=== PATIENT | female | born 1955 | race Caucasian/White ===

== ENCOUNTER 2020-11-30 11:03 | Emergency (ER) | payer OTHER ==
[~2020-11-30] VITALS: Ht 172.7 cm; Wt 93.2 kg
--- NOTE | 2020-11-30 12:48 | REP ---
INDICATION: r leg swelling, redness, tenderness. COMPARISON: None. TECHNIQUE: Right {lower extremity duplex venous scanning is performed from the groin to the ankle level. FINDINGS: The deep veins are anechoic and fully compressible from the groin to the popliteal fossa in the right lower extremity. Color flow imaging is homogeneous. Spectral Doppler interrogation demonstrates intact respiratory variation in flow and normal manual augmentation of flow. There is no evidence of deep vein thrombosis above the knee. There is occlusive thrombosis in the greater saphenous vein extending from the distal thigh across the popliteal region into the proximal calf. Superficial vein thrombophlebitis is present. There is no evidence of DVT in the visualized deep system calf veins. Doppler interrogation of the contralateral common femoral vein shows normal symmetric respiratory phasicity. IMPRESSION: No evidence of DVT in the right lower extremity femoropopliteal veins. No DVT in the visible portions of the calf veins. Superficial DVT is present with occlusive thrombosis of the distal greater saphenous vein on the right side. <Electronically signed by Jerry Loja > 11/30/20 [id number]
--- NOTE | 2020-11-30 13:08 | CR.PDOC ---
General Date of Consultation: Nov 30, 2020 Referring Provider: JENNIFER YOO PA-C Consultation REASON FOR CONSULTATION/CHIEF COMPLAINT: Right Superficial Great Saphenous Vein Thrombophlebitis ED PA-C called to confirm treatment plan for this 65 y/o female who developed redness and pain at lower right leg for past 2. Patient had an ultrasound performed which showed right gsv thrombosis from distal gsv to knee. I agree wi th the PA-C's assessment and plan; Right GSV Thrombophlebitis, treat with warm compress and NSAID's. Also repeat ultrasound in 1 week to r/o propagation. Patient may follow-up in vascular office if required. Vital Signs/I&O Vital Signs Date Time Temp Pulse Resp B/P (MAP) Pulse Ox O2 Delivery O2 Flow Rate FiO2 11/30/20 11:27 11/30/20 11:03 97.1 104 18 98 Room Air Allergies Coded Allergies: Sulfa (Sulfonamide Antibiotics) (Verified Allergy, Unknown, Rash, 11/30/20) levofloxacin (Verified Adverse Reaction, Unknown, Torn Ligaments, 11/30/20) ESTRELLA LUNA MD Nov 30, 2020 13:08
[2020-11-30 13:16] VITALS: BP 113/72
== END 2020-11-30 13:15 | disposition home or self-care (01) ==
LOC: M ED 11:03
DX: I82.819 Embolism and thrombosis of superficial veins of unspecified lower extremity (principal); I10 Essential (primary) hypertension; Z88.1 Allergy status to other antibiotic agents; Z88.2 Allergy status to sulfonamides